=== PATIENT | male | born 1980 | race Caucasian/White ===

== ENCOUNTER 2020-07-16 17:14 | Emergency (ER) | payer MEDICAID, OTHER ==
--- NOTE | 2020-07-16 17:37 | ERPHSYRPT ---
- History of Present Illness Time Seen by Provider: 07/16/20 17:37 Source: patient Exam Limitations: no limitations Physician History: This is a 39-year-old white male who presents with left eye pain, redness and watering. 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 He could see the foreign body. Over the last 4 days the above symptoms were worsening. Timing/Duration: day(s) (4) Location: left eye Severity: moderate Apparent Injury: yes Associated Symptoms: pain, burning, sensitivity to light, redness, foreign body sensation Allergies/Adverse Reactions: penicillin G Allergy (Verified 07/16/20 18:16) Hives Home Medications: Omeprazole [Prilosec] 20 mg PO BID 07/15/16 [History] Hx Tetanus, Diphtheria Vaccination/Date Given: Yes Hx Influenza Vaccination/Date Given: No Hx Pneumococcal Vaccination/Date Given: No Travel Risk - International Travel Have you traveled outside of the country in past 3 weeks: No - Coronavirus Screening Are you exhibiting any of the following symptoms?: No Close contact with a COVID-19 positive Pt in past 14-21 Days: No - Review of Systems Constitutional: No Symptoms Eyes: Eye Pain (Left left), Eye Redness, Foreign Body Sensation (Left) Ears, Nose, & Throat: No Symptoms Respiratory: No Symptoms Cardiac: No Symptoms Abdominal/Gastrointestinal: No Symptoms Genitourinary Symptoms: No Symptoms Musculoskeletal: No Symptoms Skin: No Symptoms Neurological: No Symptoms Psychological: No Symptoms Endocrine: No Symptoms Hematologic/Lymphatic: No Symptoms Immunological/Allergic: No Symptoms All Other Systems: Reviewed and Negative - Past Medical History Pertinent Past Medical History: Yes Neurological History: Seizures ENT History: No Pertinent History Cardiac History: No Pertinent History Respiratory History: Asthma Endocrine Medical History: No Pertinent History Musculoskeletal History: Fractures GI Medical History: GERD History: No Pertinent History Psycho-Social History: Anxiety, Depression Male Reproductive Disorders: No Pertinent History - Past Surgical History Past Surgical History: Yes Neuro Surgical History: No Pertinent History Cardiac: No Pertinent History Respiratory: No Pertinent History Gastrointestinal: No Pertinent History Genitourinary: No Pertinent History Musculoskeletal: Orthopedic Surgery Male Surgical History: No Pertinent History Other Surgical History: rt hand - Social History Smoking Status: Current every day smoker How long have you smoked: YRS Exposure to second hand smoke: Yes Drug Use: none Patient Lives Alone: No - Nursing Vital Signs Nursing Vital Signs: Initial Vital Signs Temperature 97.4 F 07/16/20 18:09 Pulse Rate 88 07/16/20 18:09 Respiratory Rate 15 07/16/20 18:09 Blood Pressure 135/75 07/16/20 18:09 O2 Sat by Pulse Oximetry 98 07/16/20 18:09 - Physical Exam General Appearance: mild distress, alert, anxiety Eye Exam: right eye: normal inspection, left eye: PERRL, EOMI, conjunctival inflammation, corneal abrasion, foreign body (At the 6 to 7 o'clock position) Ears, Nose, Throat Exam: normal ENT inspection, moist mucous membranes Neck Exam: normal inspection, non-tender, supple, full range of motion Respiratory Exam: airway intact, No chest tenderness, No respiratory distress Gastrointestinal Exam: tenderness Extremity Exam: normal inspection, normal range of motion, pelvis stable Neurologic: alert, oriented x 3, cooperative, cosmetology professor II-XII nml as tested, normal mood/affect, nml cerebellar function, nml station & gait, sensation nml Skin Exam: normal color, warm, dry Lymphatic: No adenopathy SpO2 Interpretation: normal O2 Delivery: Room Air - Course Nursing assessment & vital signs reviewed: Yes Ordered Tests: Medication Summary Discontinued Medications Generic Name Dose Route Start Last Admin Trade Name Freq PRN Reason Stop Dose Admin Erythromycin 3.5 gm 07/16/20 18:48 Erythromycin 3.5 Gm Ophth. OP 07/16/20 18:49 STAT ONE Tetracaine HCl Confirm 07/16/20 18:37 Tetracaine 0.5% Steri-Unit [place] Administered 07/16/20 18:38 Dose 4 ml OP .STK-MED ONE Tetracaine HCl 4 ml 07/16/20 18:47 Tetracaine 0.5% Steri-Unit [place] OP 07/16/20 18:48 STAT STA - Progress Progress: unchanged Counseled pt/family regarding: diagnosis, need for follow-up - Departure Departure Disposition: Home Clinical Impression: Corneal abrasion, left, Foreign body of left cornea Condition: Stable Critical Care Time: No Referrals: ASTER MARIA [Primary Care Provider] - Additional Instructions: Place erythromycin ophthalmologic ointment 4 times a day for the next 5 days. Follow-up with an direct support staff member if symptoms worsening or after 48 hours your symptoms have not improved. Take medication as prescribed. Prescriptions: Hydrocodone/APAP 5/325 [[place] 5/325 mg] 1 each PO Q8H PRN PRN #10 tablet MDD 3 PRN Reason: Pain Erythromycin Base 3.5 gm [Erythromycin 3.5 GM OPHTH.] 3.5 gm OP QID #1 be
[2020-07-16] MEDS ORDERED: TETRACAINE 0.5% STERI-UNIT SOL OP ONE (18:37)
[2020-07-16] MEDS ORDERED: TETRACAINE 0.5% STERI-UNIT SOL OP STA (18:47)
[2020-07-16] MEDS ORDERED: Erythromycin 3.5 GM OPHTH. OP ONE (18:48)
[2020-07-16] MEDS ORDERED: Erythromycin 1 GM ONE (18:53)
[2020-07-16 19:12] VITALS: BP 137/92; PULSE 84; O2SAT 99
== END 2020-07-16 19:12 | disposition home or self-care (01) ==
LOC: ED 17:14
DX: T15.02XA Foreign body in cornea, left eye, initial encounter (principal); S00.252A Superficial foreign body of left eyelid and periocular area, initial encounter; W45.8XXA Other foreign body or object entering through skin, initial encounter; Y93.89 Activity, other specified; Y92.89 Other specified places as the place of occurrence of the external cause; H57.12 Ocular pain, left eye
CPT/HCPCS: 99283; A9270-GY

== ENCOUNTER 2021-02-22 19:02 | Emergency (ER) | payer MEDICAID ==
--- NOTE | 2021-02-22 19:18 | ERPHSYRPT ---
- History of Present Illness Time Seen by Provider: 02/22/21 19:17 Source: patient Physician History: This is a 40-year-old white male with chronic, generalized poor dentition who presents with 2 to 3 days history of dental pain as well as pain to the right lateral aspect of his tongue. Patient was put on clindamycin, naproxen and nystatin liquid swish and swallow. Patient is also added Orajel for the pain. Patient states that he has not taken all his antibiotics as prescribed and the pain is improved but the above treatment plus the addition of Tylenol plain has not lowered the pain to an appropriate level for him. He has not had fevers. He has an appointment with 3 different dentists all scheduled within the next 1 to 2 weeks. He does not feel as though he can wait that long for sufficient pain control. Timing/Duration: gradual onset Prearrival Treatment: over the counter meds, prescription meds Modifying Factors: Improves With: nothing Associated Symptoms: tooth pain Allergies/Adverse Reactions: penicillin G Allergy (Verified 02/22/21 19:21) Hives Home Medications: Omeprazole [Prilosec] 40 mg PO DAILY 07/15/16 [History] Naproxen 500 mg [Naprosyn 500 MG] 500 mg PO BID 02/22/21 [History] Nystatin 60 ml [Nystatin SUSPENSION 60 ML] 5 ml PO QID 02/22/21 [History] clindamycin HCL [Cleocin HCl] 300 mg PO QID 02/22/21 [History] Hx Tetanus, Diphtheria Vaccination/Date Given: Yes Hx Influenza Vaccination/Date Given: No Hx Pneumococcal Vaccination/Date Given: No Travel Risk - International Travel Have you traveled outside of the country in past 3 weeks: No - Coronavirus Screening Are you exhibiting any of the following symptoms?: No Close contact with a COVID-19 positive Pt in past 14-21 Days: No - Vaccine Status Have you recieved a Covid-19 vaccination: No - Review of Systems Constitutional: No Symptoms Eyes: No Symptoms Ears, Nose, & Throat: Other (Dental pain) Respiratory: No Symptoms Cardiac: No Symptoms Abdominal/Gastrointestinal: No Symptoms Genitourinary Symptoms: No Symptoms Musculoskeletal: No Symptoms Skin: No Symptoms Neurological: No Symptoms Psychological: No Symptoms Endocrine: No Symptoms Hematologic/Lymphatic: No Symptoms Immunological/Allergic: No Symptoms All Other Systems: Reviewed and Negative - Past Medical History Pertinent Past Medical History: Yes Neurological History: Seizures ENT History: No Pertinent History Cardiac History: No Pertinent History Respiratory History: Asthma Endocrine Medical History: No Pertinent History Musculoskeletal History: Fractures GI Medical History: GERD History: No Pertinent History Psycho-Social History: Anxiety, Depression Male Reproductive Disorders: No Pertinent History - Past Surgical History Past Surgical History: Yes Neuro Surgical History: No Pertinent History Cardiac: No Pertinent History Respiratory: No Pertinent History Gastrointestinal: No Pertinent History Genitourinary: No Pertinent History Musculoskeletal: Orthopedic Surgery Male Surgical History: No Pertinent History Other Surgical History: rt hand - Social History Smoking Status: Current every day smoker How long have you smoked: YRS Exposure to second hand smoke: Yes Drug Use: none Patient Lives Alone: No - Nursing Vital Signs Nursing Vital Signs: Initial Vital Signs Temperature 98.0 F 02/22/21 19:09 Pulse Rate 109 H 02/22/21 19:09 Respiratory Rate 16 02/22/21 19:09 Blood Pressure 137/100 02/22/21 19:09 O2 Sat by Pulse Oximetry 97 02/22/21 19:09 Pain Scale Pain Intensity 10 - Physical Exam General Appearance: no apparent distress, alert, anxiety Eye Exam: bilateral eye: normal inspection, PERRL, EOMI Ear Exam: bilateral ear: auricle normal Nasal Exam: normal inspection Throat Exam: dental tenderness (Generalized poor dentition with multiple fractured teeth. No evidence of any abscesses) Neck Exam: normal inspection, non-tender, supple, full range of motion, trachea midline Cardiovascular/Respiratory Exam: chest non-tender, no respiratory distress Abdominal Exam: non-tender Neurologic Exam: alert, oriented x 3, cooperative, home health outreach coordinator II-XII nml as tested, normal mood/affect, nml cerebellar function, nml station & gait, sensation nml Skin Exam: normal color, warm, dry SpO2 Interpretation: normal O2 Delivery: Room Air - Course Nursing assessment & vital signs reviewed: Yes - Progress Progress: unchanged Counseled pt/family regarding: diagnosis, need for follow-up - Departure Departure Disposition: Home Clinical Impression: Pain, dental Condition: Stable Critical Care Time: No Referrals: ASTER MARIA [Primary Care Provider] - Additional Instructions: Continue your nystatin, naproxen, clindamycin and Orajel. Take the new prescription as prescribed. Follow-up with your dentist for further and def initive management Prescriptions: Hydrocodone/APAP 5/325 [[place] 5/325 mg] 1 each PO Q8H PRN PRN #7 tablet MDD 3 PRN Reason: Pain
[2021-02-22 19:25] VITALS: O2SAT 97
[2021-02-22 19:45] VITALS: BP 129/92; PULSE 104
== END 2021-02-22 19:45 | disposition home or self-care (01) ==
LOC: ED 19:02
DX: K08.89 Other specified disorders of teeth and supporting structures (principal)
CPT/HCPCS: 99283

== ENCOUNTER 2021-04-16 23:55 | Emergency (ER) | payer OTHER ==
[2021-04-17] MEDS ORDERED: MORPHINE SULFATE 4 MG INJ IV ONE (00:12)
[2021-04-17] MEDS ORDERED: Zofran 4 MG/2 ML VIAL IV ONE (00:12)
[2021-04-17] MEDS ORDERED: TYLENOL 325 MG PO ONE (00:12)
[2021-04-17] MEDS ORDERED: Sodium Chloride 0.9% 1000 ML 1,000 ML IV STA (00:12)
[2021-04-17] MEDS ORDERED: DUONEB 0.5-3 MG/3 ml Neb IH ONE ×2 (00:13→00:18)
[2021-04-17] MEDS ORDERED: solu-MEDROL 125 MG IV ONE (00:13)
[2021-04-17] MEDS ORDERED: AZACTAM 1 GM*** 2 GM in Sodium Chloride 0.9% 100 ML BAG 100 ML IV ONE (00:15)
[2021-04-17] MEDS ORDERED: LEVOFLOXACIN 750MG/150ML D5W 750 MG/150 ML BAG IV STA (00:15)
--- NOTE | 2021-04-17 00:34 | ERPHSYRPT ---
- History of Present Illness Time Seen by Provider: 04/16/21 23:59 Source: patient Exam Limitations: no limitations Patient Subjective Stated Complaint: pt states he was ripping moldy insulation and bhakti out of a house trailer today and has been having some chest pain and shortness of breath. Triage Nursing Assessment: pt alert and oriented, answers questions approp. pt ambulatory with steady gait noted. frequent cough noted. lungs cta. face flushed, skin hot and dry. Physician History: 40 years old male presented in the ER with off-and-on cough since receiving second chart of Covid vaccine a couple of months ago and rapid worsening since afternoon after he ripped off mold insulated carpet. Patient reports chest tightness pressure and heaviness with productive cough of clear to yellow sputum with increasing shortness of breath with activity. Gait evening he started to have a fever with a T-max of 103. He is also complaining of epigastric/right upper quadrant abdominal pain with 2 episodes of nonprojectile, nonbilious vomiting emesis. Denies any sick. Patient reports having similar symptoms in the past after exposure to mold. Timing/Duration: today, constant, gradual onset, worse Severity of Dyspnea-Max: moderate Severity of Dyspnea-Current: moderate Possible Cause: allergen exposure Modifying Factors: Worsens With: activity, coughing, deep breath, exertion Associated Symptoms: anxiety, cough, chest pain/discomfort, wheezing, heaviness, muscle spasms hands, painful breathing, sweating, tightness Allergies/Adverse Reactions: penicillin G Allergy (Verified 04/17/21 00:11) Hives Home Medications: Omeprazole [Prilosec] 40 mg PO DAILY 07/15/16 [History] Hx Tetanus, Diphtheria Vaccination/Date Given: Yes Hx Influenza Vaccination/Date Given: No Hx Pneumococcal Vaccination/Date Given: No Immunizations Up to Date: Yes Travel Risk - International Travel Have you traveled outside of the country in past 3 weeks: No - Coronavirus Screening Are you exhibiting any of the following symptoms?: Yes Symptoms: Cough: New Onset Close contact with a COVID-19 positive Pt in past 14-21 Days: No - Vaccine Status Have you recieved a Covid-19 vaccination: Yes [employer]: Moderna - Vaccination Dates Date of 2cond Vaccination (if applicable): 2020 - Review of Systems Constitutional: Fever, Chills, Fatigue Eyes: No Symptoms Ears, Nose, & Throat: Throat Pain Respiratory: Cough, Dyspnea, Dyspnea on Exertion (CASTELLANOS), Wheezing Cardiac: Chest Pain Abdominal/Gastrointestinal: Abdominal Pain, Nausea, Vomiting Genitourinary Symptoms: No Symptoms Skin: No Symptoms Neurological: Headache Psychological: No Symptoms Endocrine: No Symptoms Hematologic/Lymphatic: No Symptoms Immunological/Allergic: No Symptoms - Past Medical History Pertinent Past Medical History: Yes Neurological History: Seizures ENT History: No Pertinent History Cardiac History: No Pertinent History Respiratory History: Asthma Endocrine Medical History: No Pertinent History Musculoskeletal History: Fractures GI Medical History: GERD History: No Pertinent History Psycho-Social History: Anxiety, Depression Male Reproductive Disorders: No Pertinent History - Past Surgical History Past Surgical History: Yes Neuro Surgical History: No Pertinent History Cardiac: No Pertinent History Respiratory: No Pertinent History Gastrointestinal: No Pertinent History Genitourinary: No Pertinent History Musculoskeletal: Orthopedic Surgery Male Surgical History: No Pertinent History Other Surgical History: rt hand - Social History Smoking Status: Current every day smoker How long have you smoked: off/on Exposure to second hand smoke: Yes Drug Use: none Patient Lives Alone: No - Nursing Vital Signs Nursing Vital Signs: Initial Vital Signs Temperature 103.3 F 04/16/21 23:57 Pulse Rate 118 H 04/16/21 23:57 Respiratory Rate 20 04/16/21 23:57 Blood Pressure 130/83 04/16/21 23:57 O2 Sat by Pulse Oximetry 99 04/16/21 23:57 Pain Scale Pain Intensity 4 - Physical Exam General Appearance: no apparent distress, alert, anxiety Eye Exam: PERRL/EOMI, eyes nml inspection Ears, Nose, Throat Exam: hearing grossly normal, pharyngeal erythema Neck Exam: normal inspection, non-tender, supple, full range of motion, No Brudz inski, No Kernig's, No meningismus Respiratory Exam: wheezing, No chest tenderness Cardiovascular/Chest Exam: normal heart sounds, tachycardia Abdominal/Gastrointestinal Exam: soft, normal bowel sounds, tenderness (Epigastric/right upper quadrant) Extremity Exam: non-tender, normal range of motion, normal inspection Neurologic Exam: alert, oriented x 3, cooperative, denture contour wire specialist II-XII nml as tested, normal mood/affect, nml cerebellar function, nml station & gait, sensation nml, No motor deficits Skin Exam: normal color SpO2 Interpretation: normal SpO2: 97 O2 Delivery: Room Air - Course EKG Interpreted by Me: RATE ([id number]), Sinus Tach, NORMAL AXIS, NORMAL INTERVALS, NORMAL QRS Ordered Tests: Medication Summary Discontinued Medications Generic Name Dose Route Start Last Admin Trade Name Hermes PRN Reason Stop Dose Admin Acetaminophen 975 mg 04/17/21 00:12 04/17/21 02:14 Tylenol 325 Mg PO 04/17/21 00:13 975 mg STAT ONE Administration Acetaminophen Confirm 04/17/21 01:49 Tylenol 325 Mg Administered 04/17/21 01:50 Dose 975 mg .ROUTE .STK-MED ONE Albuterol/Ipratropium 3 ml 04/17/21 00:13 04/17/21 00:20 Duoneb 0.5-3 Mg/3 Ml Neb IH 04/17/21 00:14 3 ml STAT ONE Administration Albuterol/Ipratropium Confirm 04/17/21 00:18 Duoneb 0.5-3 Mg/3 Ml Neb Administered 04/17/21 00:19 Dose 3 ml IH .STK-MED ONE Sodium Chloride 1,000 mls @ 999 mls/hr 04/17/21 00:12 04/17/21 03:10 Sodium Chloride 0.9% 1000 Ml IV 04/17/21 01:12 Infused .Q1H1M STA Infusion Levofloxacin/Dextrose 750 mg in 150 mls @ 100 mls/hr 04/17/21 00:15 04/17/21 03:32 Levofloxacin 750mg/150ml D5w IV 04/17/21 01:44 Infused STAT STA Infusion Aztreonam 2 gm/ Sodium 100 mls @ 200 mls/hr 04/17/21 00:15 04/17/21 03:24 Chloride IV 04/17/21 00:44 200 mls/hr STAT ONE Administration Sodium Chloride Confirm 04/17/21 01:49 Sodium Chloride 0.9% 1000 Ml Administered 04/17/21 01:50 Dose 1,000 mls @ ud .ROUTE .STK-MED ONE Levofloxacin/Dextrose Confirm 04/17/21 01:49 Levofloxacin 750mg/150ml D5w Administered 04/17/21 01:50 Dose 750 mg in 150 mls @ ud IV .STK-MED ONE Methylprednisolone Sodium Succinate 125 mg 04/17/21 00:13 04/17/21 01:58 Solu-Medrol 125 Mg IV 04/17/21 00:14 125 mg STAT ONE Administration Methylprednisolone Sodium Succinate Confirm 04/17/21 01:49 Solu-Medrol 125 Mg Administered 04/17/21 01:50 Dose 125 mg .ROUTE .STK-MED ONE Morphine Sulfate 4 mg 04/17/21 00:12 04/17/21 01:54 Morphine Sulfate 4 Mg Inj IV 04/17/21 00:13 4 mg STAT ONE Administration Morphine Sulfate Confirm 04/17/21 01:49 Morphine Sulfate 4 Mg Inj Administered 04/17/21 01:50 Dose 4 mg .ROUTE .STK-MED ONE Ondansetron HCl 4 mg 04/17/21 00:12 04/17/21 01:59 Zofran 4 Mg/2 Ml Vial IV 04/17/21 00:13 4 mg STAT ONE Administration Ondansetron HCl Confirm 04/17/21 01:49 Zofran 4 Mg/2 Ml Vial Administered 04/17/21 01:50 Dose 4 mg .ROUTE .STK-MED ONE Lab/Rad Data: Laboratory Result Diagrams 04/17/21 01:13 04/17/21 01:13 Laboratory Results 04/17/21 04/17/21 04/17/21 Range/Units 02:13 01:13 01:13 WBC (4.0-10.5) K/mm3 RBC (4.1-5.6) M/mm3 Hgb (12.5-18.0) gm/dl Hct (42-50) % MCV (78-100) fl MCH (26-32) pg MCHC (32-36) g/dl RDW (11.5-14.0) % Plt Count (150-450) K/mm3 MPV (7.5-11.0) fl Gran % (36.0-66.0) % Eos # (Auto) (0-0.5) Absolute Lymphs (auto) (1.0-4.6) Absolute Monos (auto) (0.0-1.3) Lymphocytes % (24.0-44.0) % Monocytes % (0.0-12.0) % Eosinophils % (0.00-5.0) % Basophils % (0.0-0.4) % Absolute Granulocytes (1.4-6.9) Basophils # (0-0.4) Sodium (137-145) mmol/L Potassium (3.5-5.1) mmol/L Chloride (98-107) mmol/L Carbon Dioxide (22-30) mmol/L Anion Gap (5-15) MEQ/L BUN (9-20) mg/dL Creatinine (0.66-1.25) mg/dL Estimated GFR ML/MIN Glucose (74-106) mg/dL Lactic Acid (0.4-2.0) Calcium (8.4-10.2) mg/dL Total Bilirubin (0.2-1.3) mg/dL AST (17-59) U/L ALT (0-50) U/L Alkaline Phosphatase (38-126) U/L Troponin I < 0.012 (0.000-0.034) ng/mL NT-Pro-B Natriuret Pep 60.2 (0-450) pg/mL Serum Total Protein (6.3-8.2) g/dL Albumin (3.5-5.0) g/dL Amylase (30-110) U/L Lipase (23-300) U/L Urine Color STRAW (YELLOW) Urine Appearance CLEAR (CLEAR) Urine pH 6.0 (5-6) Ur Specific Hopkins 1.016 (1.005-1.025) Urine Protein NEGATIVE (Negative) Urine Ketones NEGATIVE (NEGATIVE) Urine Blood NEGATIVE (0-5) Francesco/ul Urine Nitrite NEGATIVE (NEGATIVE) Urine Bilirubin NEGATIVE (NEGATIVE) Urine Urobilinogen NEGATIVE (0-1) mg/dL Ur Leukocyte Esterase NEGATIVE (NEGATIVE) Urine WBC (Auto) NONE SEEN (0-5) /HPF Urine RBC (Auto) NONE (0-2) /HPF U Epithel Cells (Auto) NONE (FEW) /HPF Urine Bacteria (Auto) NONE SEEN (NEGATIVE) /HPF Urine Culture Reflexed NO (NO) Urine Glucose NEGATIVE (NEGATIVE) mg/dL Influenza Type A Ag NEGATIVE (NEGATIVE) Influenza Type B Ag NEGATIVE (NEGATIVE) 04/17/21 04/17/21 04/17/21 Range/Units 01:13 01:13 00:12 WBC 13.4 H (4.0-10.5) K/mm3 RBC 4.59 (4.1-5.6) M/mm3 Hgb 14.6 (12.5-18.0) gm/dl Hct 44.2 (42-50) % MCV 96.3 (78-100) fl MCH 31.8 (26-32) pg MCHC 33.0 (32-36) g/dl RDW 13.4 (11.5-14.0) % Plt Count 290 (150-450) K/mm3 MPV 9.9 (7.5-11.0) fl Gran % 80.2 H (36.0-66.0) % Eos # (Auto) 0.01 (0-0.5) Absolute Lymphs (auto) 1.75 (1.0-4.6) Absolute Monos (auto) 0.89 (0.0-1.3) Lymphocytes % 13.0 L (24.0-44.0) % Monocytes % 6.6 (0.0-12.0) % Eosinophils % 0.1 (0.00-5.0) % Basophils % 0.1 (0.0-0.4) % Absolute Granulocytes 10.77 H (1.4-6.9) Basophils # 0.02 (0-0.4) Sodium 136 L (137-145) mmol/L Potassium 3.6 (3.5-5.1) mmol/L Chloride 101 (98-107) mmol/L Carbon Dioxide 26 (22-30) mmol/L Anion Gap 12.0 (5-15) MEQ/L BUN 11 (9-20) mg/dL Creatinine 1.04 (0.66-1.25) mg/dL Estimated GFR > 60.0 ML/MIN Glucose 95 (74-106) mg/dL Lactic Acid 2.1 H (0.4-2.0) Calcium 9.3 (8.4-10.2) mg/dL Total Bilirubin 0.80 (0.2-1.3) mg/dL AST 32 (17-59) U/L ALT 36 (0-50) U/L Alkaline Phosphatase 106 (38-126) U/L Troponin I (0.000-0.034) ng/mL NT-Pro-B Natriuret Pep (0-450) pg/mL Serum Total Protein 7.3 (6.3-8.2) g/dL Albumin 4.3 (3.5-5.0) g/dL Amylase 48 (30-110) U/L Lipase 83 (23-300) U/L Urine Color (YELLOW) Urine Appearance (CLEAR) Urine pH (5-6) Ur Specific Hopkins (1.005-1.025) Urine Protein (Negative) Urine Ketones (NEGATIVE) Urine Blood (0-5) Francesco/ul Urine Nitrite (NEGATIVE) Urine Bilirubin (NEGATIVE) Urine Urobilinogen (0-1) mg/dL Ur Leukocyte Esterase (NEGATIVE) Urine WBC (Auto) (0-5) /HPF Urine RBC (Auto) (0-2) /HPF U Epithel Cells (Auto) (FEW) /HPF Urine Bacteria (Auto) (NEGATIVE) /HPF Urine Culture Reflexed (NO) Urine Glucose (NEGATIVE) mg/dL Influenza Type A Ag (NEGATIVE) Influenza Type B Ag (NEGATIVE) - Progress Progress: improved Air Movement: good Progress Note: 04/17/21 02:30 Patient was tachypneic and tachycardic on presentation with wheezing, given breathing treatment, Solu-Medrol along with Tylenol for fever control. Is given a dose of antibiotics as well. Work-up showed white count of 13, mildly elevated lactate 2.1, grossly unremarkable chemistries otherwise. CT chest/abdomen pelvis negative for any acute findings. Patient is recommended observation admission but he does not want to stay, states "I am feeling better after breathing treatment and do not want to stay in the hospital". He is counseled about worsening of condition but he is adamant about going home. On repeated evaluation his lung sounds much clear. Afebrile. We will continue with Levaquin, steroid and inhaler and outpatient follow-up recommended. Discussed signs symptoms of worsening needing return to ER which he seems understanding. Blood Culture(s) Obtained: Yes Antibiotics given: Yes Counseled pt/family regarding: lab results, diagnosis, need for follow-up, rad results - Departure Departure Disposition: Home Clinical Impression: Acute bronchitis Qualifiers: Bronchitis organism: unspecified organism Qualified Code(s): J20.9 - Acute bronchitis, unspecified Fever Qualifiers: Fever type: unspecified Qualified Code(s): R50.9 - Fever, unspecified Condition: Stable Critical Care Time: No Referrals: ASTER MARIA [Primary Care Provider] - (1-2 days for reevaluation.) Instructions: Asthma, Adult (DC), Acute Bronchitis Additional Instructions: Take Tylenol/ibuprofen alternate for fever control greater than 100.4 every 4-6 hourly. Drink plenty of fluids. Avoid exposure to allergens. Continue with antibiotics and steroids. Use inhaler as needed for cough/shortness of breath. Return to ER for worsening cough shortness of breath/fever chills etc. Prescriptions: Prednisone 20 mg [Deltasone 20 mg] 60 mg PO DAILY 5 Days #15 tablet Levofloxacin [Levaquin 500 MG Tablet] 500 mg PO DAILY #7 tablet Albuterol 8 gm Mdi Hfa [Ventolin Hfa MDI] 8 gm IH Q4H #1 [email or web address]
[2021-04-17 01:20] LABS: Absolute Neutrophil Ct (ANC) 10.77 (1.4-6.9); BASOPHIL % 0.1 % (0.0-0.4); Basophil (Absolute #) 0.02 (0-0.4); Eosinophil % 0.1 % (0.00-5.0); Eosinophil (Absolute #) 0.01 (0-0.5); Hematocrit 44.2 % (42-50); Hemoglobin 14.6 gm/dl (12.5-18.0); Lymphocyte (Absolute #) 1.75 (1.0-4.6); Mean Cell Volume 96.3 fl (78-100); Mean Corpuscular Hemoglobin 31.8 pg (26-32); Mean Platelet Volume 9.9 fl (7.5-11.0); Monocyte (Absolute #) 0.89 (0.0-1.3); Monocytes % 6.6 % (0.0-12.0); Neutrophil % 80.2 % (36.0-66.0); Platelet Count 290 K/mm3 (150-450); Red Blood Count 4.59 M/mm3 (4.1-5.6); Red Cell Distribution Width 13.4 % (11.5-14.0); White Blood Count 13.4 K/mm3 (4.0-10.5)
[2021-04-17 01:33] LABS: ALBUMIN 4.3 g/dL (3.5-5.0); ALKALINE PHOSPHATASE 106 U/L (38-126); AMYLASE 48 U/L (30-110); BLOOD UREA NITROGEN 11 mg/dL (9-20); CHLORIDE 101 mmol/L (98-107); Calcium 9.3 mg/dL (8.4-10.2); Carbon Dioxide 26 mmol/L (22-30); Creatinine 1 1.04 mg/dL (0.66-1.25); EST GLOMERULAR FILTRATION RATE > 60.0 ML/MIN; Glucose 95 mg/dL (74-106); LIPASE 83 U/L (23-300); Potassium 3.6 mmol/L (3.5-5.1); SGOT/AST 32 U/L (17-59); SGPT/ALT 36 U/L (0-50); SODIUM 136 mmol/L (137-145); Total Protein 7.3 g/dL (6.3-8.2)
[2021-04-17 01:41] LABS: INFLUENZA A NEGATIVE (NEGATIVE); INFLUENZA B NEGATIVE (NEGATIVE)
[2021-04-17 01:44] LABS: NT PRO BNP 60.2 pg/mL (0-450); TROPONIN < 0.012 ng/mL (0.000-0.034)
[2021-04-17] MEDS ORDERED: solu-MEDROL 125 MG ONE (01:49)
[2021-04-17] MEDS ORDERED: Sodium Chloride 0.9% 1000 ML 1,000 ML ONE (01:49)
[2021-04-17] MEDS ORDERED: LEVOFLOXACIN 750MG/150ML D5W 750 MG/150 ML BAG IV ONE (01:49)
[2021-04-17] MEDS ORDERED: Zofran 4 MG/2 ML VIAL ONE (01:49)
[2021-04-17] MEDS ORDERED: TYLENOL 325 MG ONE (01:49)
[2021-04-17] MEDS ORDERED: MORPHINE SULFATE 4 MG INJ ONE (01:49)
[2021-04-17 02:23] LABS: Appearance CLEAR (CLEAR); Bilirubin NEGATIVE (NEGATIVE); Blood NEGATIVE Ery/ul (0-5); Glucose NEGATIVE (NEGATIVE); Ketones NEGATIVE (NEGATIVE); Leukocyte Esterase NEGATIVE (NEGATIVE); Nitrite NEGATIVE (NEGATIVE); Protein,Urine Dip NEGATIVE (Negative); Specific Gravity 1.016 (1.005-1.025); Urobilinogen NEGATIVE mg/dL (0-1)
[2021-04-17 02:49] LABS: Bacteria NONE SEEN /HPF (NEGATIVE); WBC NONE SEEN /HPF (0-5)
[2021-04-17 03:36] VITALS: BP 102/63; PULSE 97
--- NOTE | 2021-04-17 09:03 | XRAY ---
Indication: Fever, cough, nausea, vomiting, and chest pressure. History PE. Multiple contiguous axial images obtained through the chest using 100 cc Isovue 370 contrast and PE protocol. Comparison: July 15, 2016. There is adequate opacification of the pulmonary arteries to include the lobar and segmental branches. However minimal respiration artifact limits evaluation of the more distal branches. No obvious pulmonary embolus. Heart not enlarged. Aorta is normal in course and caliber. No pathologic mediastinal/hilar lymphadenopathy. Lungs demonstrate stable right lower lobe calcified granuloma. No new pulmonary mass, infiltrate, or effusion. Bony thorax intact. CT abdomen/pelvis reported separately. Impression: Continued negative pulmonary embolus with again incidental right lower lobe calcified granuloma. No new/acute abnormalities. Comment: Preliminary interpretation was made by [facility]. No critical discrepancy.
--- NOTE | 2021-04-17 09:05 | XRAY ---
Indication: Fever, cough, nausea, vomiting, and chest pressure. Multiple contiguous axial images obtained through the abdomen and pelvis using 100 cc Isovue 370 contrast. Comparison: None. CT chest reported separately. Noncontrasted stomach and bowel loops nonobstructed. Normal air-filled appendix. No free fluid/air. Remaining liver, gallbladder, pancreas, spleen, adrenal glands, kidneys, ureters, and bladder are unremarkable. Minimal aortic calcifications. No AAA or pathologic retroperitoneal lymphadenopathy. Osseous structures intact. No ventral or inguinal hernias. Impression: CT abdomen/pelvis with contrast exam is negative. Comment: Preliminary interpretation was made by [facility]. No critical discrepancy.
[2021-04-18 18:29] VITALS: O2SAT 97
== END 2021-04-17 04:05 | disposition home or self-care (01) ==
LOC: ED 23:55
DX: J20.9 Acute bronchitis, unspecified (principal)
CPT/HCPCS: 36000; 36415; 71260; 74177; 80053; 81001; 82150; 83605; 83690; 83880; 84484; 85025; 87040; 87400; 93005; 94640; 96360; 96365; 96367; 96374; 96375; 99285; J1956; J2270; J2405; J2930; A9270-GY

== ENCOUNTER 2022-04-08 22:17 | Emergency (ER) | payer OTHER ==
--- NOTE | 2022-04-08 22:37 | ERPHSYRPT ---
- History of Present Illness Time Seen by Provider: 04/08/22 22:30 Source: patient Physician History: Patient is a 41-year-old male presents to our ED with pain to his right wrist. Patient states he was mowing the lawn when something shot out a lawnmower and hit him on the wrist. Pain described as an ache that is localized. No radiation. Pain worse with movement and palpation. Pain improved with rest. No other injuries reported. Patient denies history of the same. Patient voices no other complaints concerns at this time. 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 - Vaccination Dates Date of 2cond Vaccination (if applicable): 2020 - Review of Systems Constitutional: No Symptoms, No Fever, No Chills Eyes: No Symptoms Ears, Nose, & Throat: No Symptoms Respiratory: No Symptoms, No Cough, No Dyspnea Cardiac: No Symptoms, No Chest Pain, No Edema, No Syncope Abdominal/Gastrointestinal: No Symptoms, No Abdominal Pain, No Nausea, No Vomiting, No Diarrhea Genitourinary Symptoms: No Symptoms, No Dysuria Musculoskeletal: No Symptoms, No Back Pain, No Neck Pain Skin: No Symptoms, No Rash Neurological: No Symptoms, No Dizziness, No Focal Weakness, No Sensory Changes Psychological: No Symptoms Endocrine: No Symptoms Hematologic/Lymphatic: No Symptoms Immunological/Allergic: No Symptoms All Other Systems: Reviewed and Negative - Past Medical History Pertinent Past Medical History: Yes Neurological History: Seizures ENT History: No Pertinent History Cardiac History: No Pertinent History Respiratory History: Asthma Endocrine Medical History: No Pertinent History Musculoskeletal History: Fractures GI Medical History: GERD History: No Pertinent History Psycho-Social History: Anxiety, Depression Male Reproductive Disorders: No Pertinent History - Past Surgical History Past Surgical History: Yes Neuro Surgical History: No Pertinent History Cardiac: No Pertinent History Respiratory: No Pertinent History Gastrointestinal: No Pertinent History Genitourinary: No Pertinent History Musculoskeletal: Orthopedic Surgery Male Surgical History: No Pertinent History Other Surgical History: rt hand - Social History Smoking Status: Current every day smoker How long have you smoked: off/on Exposure to second hand smoke: Yes Drug Use: none Patient Lives Alone: No - Nursing Vital Signs Nursing Vital Signs: Initial Vital Signs Temperature 99.3 F 04/08/22 22:25 Pulse Rate 84 04/08/22 22:25 Respiratory Rate 17 04/08/22 22:25 Blood Pressure 123/78 04/08/22 22:25 O2 Sat by Pulse Oximetry 98 04/08/22 22:25 Pain Scale Pain Intensity 9 - Physical Exam General Appearance: no apparent distress, alert Eye Exam: PERRL/EOMI, eyes nml inspection Ears, Nose, Throat Exam: normal ENT inspection, TMs normal, pharynx normal, moist mucous membranes Neck Exam: normal inspection, non-tender, supple, full range of motion Respiratory Exam: normal breath sounds, lungs clear, airway intact, No respiratory distress Cardiovascular Exam: regular rate/rhythm, normal heart sounds, normal peripheral pulses Gastrointestinal/Abdomen Exam: soft, normal bowel sounds, No tenderness, No mass Back Exam: normal inspection, normal range of motion, No CVA tenderness, No vertebral tenderness Extremity Exam: normal inspection, normal range of motion, pelvis stable, other (Tenderness to palpation right wrist. Mild swelling. Overlying soft tissue intact. No open or draining lesions. No lacerations.) Neurologic Exam: alert, oriented x 3, cooperative, normal mood/affect, nml cerebellar function, nml station & gait, sensation nml, No motor deficits Skin Exam: normal color, warm, dry, No rash Lymphatic Exam: No adenopathy SpO2 Interpretation: normal SpO2: 98 O2 Delivery: Room Air - Course Nursing assessment & vital signs reviewed: Yes - Radiology Exams Wrist X-ray Interpretation: Interpreted by me (No fracture dislocations. No soft tissue abnormalities) Forearm X-ray Interpretation: Interpreted by me (No fracture dislocations. No soft tissue abnormalities) Ordered Tests: Active Orders 24 hr Category Date Time Status FOREARM Stat Exams 04/08/22 23:49 Taken WRIST (MIN 3 VIEWS) Stat Exams 04/08/22 23:49 Taken Medication Summary Discontinued Medications Generic Name Dose Route Start Last Admin Trade Name Freq PRN Reason Stop Dose Admin Ketorolac Tromethamine 30 mg 04/08/22 22:35 04/08/22 23:13 Ketorolac Tromethamine 30 Mg/Ml Inj IM 04/08/22 22:36 30 mg STAT ONE Administration Ketorolac Tromethamine Confirm 04/08/22 23:08 Ketorolac Tromethamine 30 Mg/Ml Inj Administered 04/08/22 23:09 Dose 30 mg .ROUTE .STK-MED ONE - Progress Progress: improved Progress Note: Patient reassessed. Pain improved. X-rays negative for fracture dislocations. Patient declined a shoulder sling. Patient was given a wrist cock-up splint for comfort. A prescription of Toradol was provided to patient as well. Patient agrees to follow-up with primary care doctor within 48 hours for evaluation. Portions of this note were created with voice recognition technology. There may be grammatical, spelling, punctuation or sound alike errors 04/09/22 00:13 Counseled pt/family regarding: lab results, diagnosis, need for follow-up, rad results - Departure Departure Disposition: Home Clinical Impression: Wrist contusion, Forearm contusion Condition: Stable Critical Care Time: No Referrals: ASTER MARIA [Primary Care Provider] - Follow up/PCP as directed Additional Instructions: Discharge/Care Plan CALE MADRID was seen on 04/09/22 in the Emergency Room. The patient was counseled regarding Diagnosis,Lab results, Imaging studies, need for follow up and when to return to the Emergency Room. Prescriptions given: Discharge Note I have spoken with the patient and/or caregivers. I have explained the patient's condition, diagnosis and treatment plan based on the information available to me at this time. I have answered the patient's and/or caregiver's questions and addressed any concerns. The patient and/or caregivers have as good understanding of the patient's diagnosis, condition and treatment plan as can be expected at this point. The vital signs have been stable. The patient's condition is stable and appropriate for discharge from the emergency department. The patient will pursue further outpatient evaluation with the primary care phys ician or other designated or consulting physician as outlined in the discharge instructions. The patient and/or caregivers are agreeable to this plan of care and follow-up instructions have been explained in detail. The patient and/or caregivers have received these instruction. The patient/and or caregivers are aware that any significant change in condition or worsening of symptoms should prompt an immediate return to this or the closest emergency department or call 911.
[2022-04-08 22:57] VITALS: O2SAT 98
[2022-04-08] MEDS ORDERED: TORAdol 30 mg Injection ONE (23:08)
[2022-04-08] MEDS: TORAdol 30 mg Injection IM ONE (23:13)
[2022-04-09 00:37] VITALS: BP 118/71; PULSE 76
--- NOTE | 2022-04-09 08:54 | XRAY ---
Indication: Pain following injury. Comparison: None 2 view right forearm obtained. No bony, articular, or soft tissue abnormalities.
--- NOTE | 2022-04-09 08:56 | XRAY ---
Indication: Pain following injury. Comparison: None 3 view right wrist obtained. No bony, articular, or soft tissue abnormalities.
== END 2022-04-09 00:25 | disposition home or self-care (01) ==
LOC: ED 22:17
DX: S60.211A Contusion of right wrist, initial encounter (principal); S50.11XA Contusion of right forearm, initial encounter; W20.8XXA Other cause of strike by thrown, projected or falling object, initial encounter; Y93.H9 Activity, other involving exterior property and land maintenance, building and construction; Y92.007 Garden or yard of unspecified non-institutional (private) residence as the place of occurrence of the external cause; M25.531 Pain in right wrist; Z72.0 Tobacco use
CPT/HCPCS: 73090; 73110; 96372; 99284; J1885; L3908

== ENCOUNTER 2022-05-30 23:08 | Emergency (ER) | payer OTHER ==
--- NOTE | 2022-05-30 23:11 | ERPHSYRPT ---
- History of Present Illness Time Seen by Provider: 05/30/22 23:11 Source: patient Exam Limitations: no limitations Physician History: This is a 41-year-old white male with poor dentition and chronic tooth decay issues. Patient, for the last few days has had worsening pain. His pain is primarily right upper molar region and right sinus pressure and pain. Patient has chronic recurrent issues with dental pain. Patient is allergic to penicillin. Severity: mild (To moderate) ENT Location: dental (Right upper molars) Prearrival Treatment: over the counter meds Associated Symptoms: tooth pain, other (Nasal pressure) Allergies/Adverse Reactions: penicillin G Allergy (Verified 05/30/22 23:18) Hives Home Medications: Omeprazole [Prilosec] 20 mg PO DAILY 07/15/16 [History] Hx Tetanus, Diphtheria Vaccination/Date Given: Yes Hx Influenza Vaccination/Date Given: No Hx Pneumococcal Vaccination/Date Given: No Travel Risk - International Travel Have you traveled outside of the country in past 3 weeks: No - Coronavirus Screening Are you exhibiting any of the following symptoms?: No Close contact with a COVID-19 positive Pt in past 14-21 Days: No - Vaccine Status Have you recieved a Covid-19 vaccination: Yes 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 - Vaccination Dates Date of 2cond Vaccination (if applicable): 2020 - Review of Systems Constitutional: No Symptoms Eyes: No Symptoms Ears, Nose, & Throat: Nose Pain, Other (Right upper molar pain) Respiratory: No Symptoms Cardiac: No Symptoms Abdominal/Gastrointestinal: No Symptoms Genitourinary Symptoms: No Symptoms Musculoskeletal: No Symptoms Skin: No Symptoms Neurological: No Symptoms Psychological: No Symptoms Endocrine: No Symptoms Hematologic/Lymphatic: No Symptoms Immunological/Allergic: No Symptoms All Other Systems: Reviewed and Negative - Past Medical History Pertinent Past Medical History: Yes Neurological History: Seizures ENT History: No Pertinent History Cardiac History: No Pertinent History Respiratory History: Asthma Endocrine Medical History: No Pertinent History Musculoskeletal History: Fractures GI Medical History: GERD History: No Pertinent History Psycho-Social History: Anxiety, Depression Male Reproductive Disorders: No Pertinent History - Past Surgical History Past Surgical History: Yes Neuro Surgical History: No Pertinent History Cardiac: No Pertinent History Respiratory: No Pertinent History Gastrointestinal: No Pertinent History Genitourinary: No Pertinent History Musculoskeletal: Orthopedic Surgery Male Surgical History: No Pertinent History Other Surgical History: rt hand - Social History Smoking Status: Current every day smoker How long have you smoked: off/on Exposure to second hand smoke: Yes Drug Use: none Patient Lives Alone: No - Nursing Vital Signs Nursing Vital Signs: Initial Vital Signs Temperature 98.3 F 05/30/22 23:18 Pulse Rate 80 05/30/22 23:18 Respiratory Rate 18 05/30/22 23:18 Blood Pressure 142/93 05/30/22 23:18 O2 Sat by Pulse Oximetry 98 05/30/22 23:18 Pain Scale Pain Intensity 10 - Physical Exam General Appearance: no apparent distress, alert, anxiety Eye Exam: bilateral eye: normal inspection, PERRL, EOMI Ear Exam: bilateral ear: auricle normal Nasal Exam: normal inspection Throat Exam: dental tenderness (Right upper molars with associated right upper dental gingivitis. 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 as tested, normal mood/affect, nml cerebellar function, nml station & gait, sensation nml Skin Exam: normal color, warm, dry SpO2 Interpretation: normal O2 Delivery: Room Air - Course Nursing assessment & vital signs reviewed: Yes Ordered Tests: Medication Summary Discontinued Medications Generic Name Dose Route Start Last Admin Trade Name Hermes PRN Reason Stop Dose Admin Hydrocodone Bitart/Acetaminophen 1 tab 05/30/22 23:32 05/30/22 23:38 Hydrocodone/Apap 5/325 Mg Tablet PO 05/30/22 23:33 1 tab SENT HOME W/ PATIENT ONE Administration Hydrocodone Bitart/Acetaminophen Confirm 05/30/22 23:37 Hydrocodone/Apap 5/325 Mg Tablet Administered 05/30/22 23:38 Dose 1 tab .ROUTE .STK-MED ONE Hydrocodone Bitart/Acetaminophen 1 tab 05/31/22 00:00 05/31/22 00:03 Hydrocodone/Apap 5/325 Mg Tablet PO 05/31/22 00:01 1 tab STAT ONE Administration Hydrocodone Bitart/Acetaminophen Confirm 05/31/22 00:01 Hydrocodone/Apap 5/325 Mg Tablet Administered 05/31/22 00:02 Dose 1 tab .ROUTE .STK-MED ONE Clindamycin HCl 300 mg 05/30/22 23:31 05/30/22 23:38 Clindamycin Hcl 150 Mg Capsule PO 05/30/22 23:32 300 mg STAT ONE Administration Clindamycin HCl Confirm 05/30/22 23:37 Clindamycin Hcl 150 Mg Capsule Administered 05/30/22 23:38 Dose 300 mg .ROUTE .STK-MED ONE - Progress Progress: improved, pain not gone completely Counseled pt/family regarding: diagnosis, need for follow-up - Departure Departure Disposition: Home Clinical Impression: Chronic enamel dental caries, Chronic dental infection, Gingivitis Condition: Stable Critical Care Time: No Referrals: ASTER MARIA [Primary Care Provider] - Follow up/PCP as directed Instructions: Tooth Decay, Adult, Gingivitis (DC), Dental Pain Additional Instructions: Add ibuprofen and Tylenol for pain control. Take antibiotics as prescribed. Follow-up with your dentist for definitive care. Prescriptions: Clindamycin HCl 150 mg [Cleocin 150 mg Capsule] 2 cap PO QID #56 cap
[2022-05-30] MEDS ORDERED: CLEOCIN 150 MG CAPSULE PO ONE (23:31)
[2022-05-30] MEDS ORDERED: NORCO 5/325 MG PO ONE (23:32)
[2022-05-30] MEDS ORDERED: CLEOCIN 150 MG CAPSULE ONE (23:37)
[2022-05-30] MEDS ORDERED: NORCO 5/325 MG ONE (23:37)
[2022-05-31] MEDS ORDERED: NORCO 5/325 MG PO ONE
[2022-05-31] MEDS ORDERED: NORCO 5/325 MG ONE (00:01)
[2022-05-31 00:31] VITALS: BP 132/86; PULSE 77; O2SAT 96
== END 2022-05-31 00:31 | disposition home or self-care (01) ==
LOC: ED 23:08
DX: K02.9 Dental caries, unspecified (principal); K04.7 Periapical abscess without sinus; K05.10 Chronic gingivitis, plaque induced; Z72.0 Tobacco use
CPT/HCPCS: 99282; A9270-GY

== ENCOUNTER 2023-12-10 18:41 | Emergency (ER) | payer OTHER ==
[2023-12-10 18:45] VITALS: TEMP 98.4
[2023-12-10 18:50] VITALS: O2SAT 96
--- NOTE | 2023-12-10 19:37 | ERPHSYRPT ---
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 chest clear but diminshed in lower lobes, has occ dry cough, moves all ext well, Physician History: 43 years old male history of GERD, COVID-19 virus infection 6 weeks ago. The patient is presenting to the emergency room complaining of coughing spells that he has been having since the diagnosis of his COVID infection 6 weeks ago. Sometimes after the coughing spell he would pass out. Today he was cleaning an oven at work with some chemicals, the order of the chemicals irritated his airways and had a long coughing spell. The patient has been taking a Robitussin DM with little relief. He is denying any fever he has the chills. He gets short of breath with exertion. He is also having bilateral chest pain and congestion. He has been having loose bowel movements lately no nausea or vomiting. He is denying any urinary symptoms. Allergies/Adverse Reactions: penicillin G Allergy (Verified 12/10/23 18:42) Hives Home Medications: Omeprazole [Prilosec] 20 mg PO DAILY 07/15/16 [History] Hx Tetanus, Diphtheria Vaccination/Date Given: Yes Hx Influenza Vaccination/Date Given: No Hx Pneumococcal Vaccination/Date Given: No Immunizations Up to Date: Yes Travel Risk - International Travel Have you traveled outside of the country in past 3 weeks: No - Coronavirus Screening Are you exhibiting any of the following symptoms?: Yes Symptoms: Cough: New Onset, Vomiting/Diarrhea Close contact with a COVID-19 positive Pt in past 14-21 Days: No - Vaccine Status Have you recieved a Covid-19 vaccination: Yes 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 - Vaccination Dates Date of 2cond Vaccination (if applicable): 2020 - Review of Systems Constitutional: Chills, No Fever Eyes: No Symptoms Ears, Nose, & Throat: No Symptoms Respiratory: Cough, Dyspnea on Exertion (CASTELLANOS), No Dyspnea Cardiac: Chest Pain, No Edema, No Syncope Abdominal/Gastrointestinal: Diarrhea, No Abdominal Pain, No Nausea, No Vomiting Genitourinary Symptoms: No Dysuria Musculoskeletal: No Back Pain, No Neck Pain Skin: No Rash Neurological: Dizziness, Other (Syncopal episodes after some coughing spells.), No Focal Weakness, No Sensory Changes Psychological: No Symptoms Endocrine: No Symptoms All Other Systems: Reviewed and Negative - Past Medical History Pertinent Past Medical History: Yes Neurological History: Seizures ENT History: No Pertinent History Cardiac History: No Pertinent History Respiratory History: Asthma Endocrine Medical History: No Pertinent History Musculoskeletal History: Fractures GI Medical History: GERD History: No Pertinent History Psycho-Social History: Anxiety, Depression Male Reproductive Disorders: No Pertinent History - Past Surgical History Past Surgical History: Yes Neuro Surgical History: No Pertinent History Cardiac: No Pertinent History Respiratory: No Pertinent History Gastrointestinal: No Pertinent History Genitourinary: No Pertinent History Musculoskeletal: Orthopedic Surgery Male Surgical History: No Pertinent History Other Surgical History: rt hand - Social History Smoking Status: Former smoker How long have you smoked: off/on Exposure to second hand smoke: Yes Drug Use: none Patient Lives Alone: No - Nursing Vital Signs Nursing Vital Signs: Initial Vital Signs Pulse Rate 91 H 12/10/23 18:42 Respiratory Rate 12 12/10/23 18:42 Blood Pressure 143/90 12/10/23 18:42 O2 Sat by Pulse Oximetry 96 12/10/23 18:42 Pain Scale Pain Intensity 4 - Physical Exam General Appearance: no apparent distress, alert Eye Exam: PERRL/EOMI, eyes nml inspection Ears, Nose, Throat Exam: normal ENT inspection, TMs normal, pharynx normal, moist mucous membranes Neck Exam: normal inspection, non-tender, supple, full range of motion Respiratory Exam: normal breath sounds, lungs clear, No respiratory distress Cardiovascular Exam: regular rate/rhythm, normal heart sounds Gastrointestinal/Abdomen Exam: soft, No tenderness Back Exam: normal inspection, No CVA tenderness, No vertebral tenderness Extremity Exam: normal inspection, normal range of motion Neurologic Exam: alert, oriented x 3, cooperative, normal mood/affect, sensation nml, No motor deficits Skin Exam: normal color, warm, dry, No rash Lymphatic Exam: No adenopathy SpO2: 96 - Course Nursing assessment & vital signs reviewed: Yes Ordered Tests: Active Orders 24 hr Category Date Time Status EKG-ER Only STAT Care 12/10/23 19:32 Active IV Insertion STAT Care 12/10/23 19:32 Active CHEST 1 VIEW (PORTABLE) Stat Exams 12/10/23 19:44 Taken CHEST WITH CONTRAST [CT] Stat Exams 12/10/23 21:03 Taken CBC W DIFF Stat Lab 12/10/23 19:46 Completed CMP Stat Lab 12/10/23 19:46 Completed D-DIMER QUANTITATIVE Stat Lab 12/10/23 19:46 Completed NT PRO BNPII Stat Lab 12/10/23 19:46 Completed PROTIME WITH INR Stat Lab 12/10/23 19:46 Completed PTT Stat Lab 12/10/23 19:46 Completed TROPONIN Q4H Lab 12/10/23 19:46 Completed TROPONIN Q4H Lab 12/10/23 23:45 Ordered TROPONIN Q4H Lab 12/11/23 03:45 Ordered Lab/Rad Data: Laboratory Result Diagrams 12/10/23 19:46 12/10/23 19:46 Laboratory Results 12/10/23 12/10/23 12/10/23 Range/Units 19:46 19:46 19:46 WBC (4.0-10.5) x10^3/uL RBC (4.1-5.6) x10^6/uL Hgb (12.5-18.0) g/dL Hct (42-50) % MCV (78-100) fL MCH (26-32) pg MCHC (32-36) g/dL RDW (11.5-14.0) % Plt Count (150-450) x10^3/uL MPV (7.5-11.0) fL Gran % (36.0-66.0) % Immature Gran % (Auto) (0.00-0.4) % Nucleat RBC Rel Count (0.00-0.1) % Eos # (Auto) (0-0.5) x10^3/uL Immature Gran # (Auto) (0.00-0.03) x10^3u/L Absolute Lymphs (auto) (1.0-4.6) x10^3/uL Absolute Monos (auto) (0.0-1.3) x10^3/uL Absolute Nucleated RBC (0.00-0.01) x10^3u/L Lymphocytes % (24.0-44.0) % Monocytes % (0.0-12.0) % Eosinophils % (0.00-5.0) % Basophils % (0.0-0.4) % Absolute Granulocytes (1.4-6.9) x10^3/uL Basophils # (0-0.4) x10^3/uL PT 11.3 (9.4-12.5) SECONDS INR 1.04 (0.8-3.0) APTT 29.3 (25.1-36.5) SECONDS D-Dimer 2.01 H* (0.0-0.50) mg/L Sodium (137-145) mmol/L Potassium (3.5-5.1) mmol/L Chloride (98-107) mmol/L Carbon Dioxide (22-30) mmol/L Anion Gap (5-15) MEQ/L BUN (9-20) mg/dL Creatinine (0.66-1.25) mg/dL Estimated GFR ML/MIN Glucose (74-106) mg/dL Calcium (8.4-10.2) mg/dL Total Bilirubin (0.2-1.3) mg/dL AST (17-59) U/L ALT (0-50) U/L Alkaline Phosphatase (38-126) U/L Troponin I < 0.012 (0.000-0.034) ng/mL NT-Pro-B Natriuret Pep 325 (<300) pg/mL Serum Total Protein (6.3-8.2) g/dL Albumin (3.5-5.0) g/dL 12/10/23 12/10/23 Range/Units 19:46 19:46 WBC 7.6 (4.0-10.5) x10^3/uL RBC 4.44 (4.1-5.6) x10^6/uL Hgb 13.8 (12.5-18.0) g/dL Hct 41.4 L (42-50) % MCV 93.2 (78-100) fL MCH 31.1 (26-32) pg MCHC 33.3 (32-36) g/dL RDW 12.9 (11.5-14.0) % Plt Count 260 (150-450) x10^3/uL MPV 9.8 (7.5-11.0) fL Gran % 58.9 (36.0-66.0) % Immature Gran % (Auto) 0.3 (0.00-0.4) % Nucleat RBC Rel Count 0.0 (0.00-0.1) % Eos # (Auto) 0.08 (0-0.5) x10^3/uL Immature Gran # (Auto) 0.02 (0.00-0.03) x10^3u/L Absolute Lymphs (auto) 2.10 (1.0-4.6) x10^3/uL Absolute Monos (auto) 0.89 (0.0-1.3) x10^3/uL Absolute Nucleated RBC 0.00 (0.00-0.01) x10^3u/L Lymphocytes % 27.6 (24.0-44.0) % Monocytes % 11.7 (0.0-12.0) % Eosinophils % 1.1 (0.00-5.0) % Basophils % 0.4 (0.0-0.4) % Absolute Granulocytes 4.48 (1.4-6.9) x10^3/uL Basophils # 0.03 (0-0.4) x10^3/uL PT (9.4-12.5) SECONDS INR (0.8-3.0) APTT (25.1-36.5) SECONDS D-Dimer (0.0-0.50) mg/L Sodium 135 L (137-145) mmol/L Potassium 3.8 (3.5-5.1) mmol/L Chloride 102 (98-107) mmol/L Carbon Dioxide 22 (22-30) mmol/L Anion Gap 14.2 (5-15) MEQ/L BUN 11 (9-20) mg/dL Creatinine 0.86 (0.66-1.25) mg/dL Estimated GFR 109.5 ML/MIN Glucose 142 H (74-106) mg/dL Calcium 9.1 (8.4-10.2) mg/dL Total Bilirubin 0.90 (0.2-1.3) mg/dL AST 35 (17-59) U/L ALT 25 (0-50) U/L Alkaline Phosphatase 74 (38-126) U/L Troponin I (0.000-0.034) ng/mL NT-Pro-B Natriuret Pep (<300) pg/mL Serum Total Protein 7.0 (6.3-8.2) g/dL Albumin 3.9 (3.5-5.0) g/dL - Progress Progress: unchanged Air Movement: good Progress Note: 12/10/23 19:39 43 years old Patient with past medical history of GERD, COVID-19 infection that was diagnosed 6 weeks ago. The patient presented emergency room complaining of dry cough since his COVID infection diagnosis. Sometimes he gets coughing spells followed by syncopal episodes. 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 He is also complaining of bilateral chest congestion and pain he has no history of coronary artery disease no history of asthma. Has been taking [id number] cough medications with some relief. Emergency room course and medical decision making Check an EKG, portable chest x-ray, CBC, BMP, D-dimer and troponin. The patient's EKG demonstrated sinus rhythm at rate of 86 bpm. 12/10/23 20:29 The patient lab results are reviewed. His lactic acid is elevated at 2.06 will order CTA chest rule out PE. 12/10/23 22:11 The patient CTA read by the radiologist as negative for PE or any other acute findings. The patient is reassured about the above results. He will be discharged home. He wants to be off work for for at least 2 days, he can return on 12/13/23. He is told to rest, increase his fluid intake, he still can take his cough medication Robitussin DM 4 times a day as needed. Follow-up with his family physician in 2 to 3 days. Follow-up as needed for any worsening symptoms with Blood Culture(s) Obtained: No Antibiotics given: No - Departure Departure Disposition: Home Clinical Impression: Cough present for greater than 3 weeks, Syncope due to autonomic failure Condition: Stable Critical Care Time: No Referrals: ASTER MARIA [Primary Care Provider] - Follow up/PCP as directed Additional Instructions: The patient will be discharged home. Rest, increase fluid intake, avoid irritants that can trigger the cough. 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 Robitussin DM syrup 4 times a day as needed. Follow-up with family physician 2 to 3 days. Off work for 2 days, return on December 13, 2023. Follow-up as needed for any worsening symptoms. Prescriptions: Benzonatate 200 mg PO QID 10 Days #30 cap
[2023-12-10 19:48] LABS: Absolute Neutrophil Ct (ANC) 4.48 x10^3/uL (1.4-6.9); BASOPHIL % 0.4 % (0.0-0.4); Basophil (Absolute #) 0.03 x10^3/uL (0-0.4); Eosinophil % 1.1 % (0.00-5.0); Eosinophil (Absolute #) 0.08 x10^3/uL (0-0.5); Hematocrit 41.4 % (42-50); Hemoglobin 13.8 g/dL (12.5-18.0); IMMATURE GRAN # 0.02 x10^3u/L (0.00-0.03); IMMATURE GRAN % 0.3 % (0.00-0.4); Lymphocytes % 27.6 % (24.0-44.0); Mean Cell Volume 93.2 fL (78-100); Mean Corpuscular Hemoglobin 31.1 pg (26-32); Mean Corpuscular Hgb Concent. 33.3 g/dL (32-36); Mean Platelet Volume 9.8 fL (7.5-11.0); Monocyte (Absolute #) 0.89 x10^3/uL (0.0-1.3); Monocytes % 11.7 % (0.0-12.0); Neutrophil % 58.9 % (36.0-66.0); Platelet Count 260 x10^3/uL (150-450); Red Blood Count 4.44 x10^6/uL (4.1-5.6); Red Cell Distribution Width 12.9 % (11.5-14.0); White Blood Count 7.6 x10^3/uL (4.0-10.5)
[2023-12-10 19:55] LABS: ALBUMIN 3.9 g/dL (3.5-5.0); ANION GAP 14.2 MEQ/L (5-15); BILIRUBIN,TOTAL 0.9 mg/dL (0.2-1.3); Calcium 9.1 mg/dL (8.4-10.2); Creatinine 1 0.86 mg/dL (0.66-1.25); EST GLOMERULAR FILTRATION RATE 109.5 ML/MIN; Potassium 3.8 mmol/L (3.5-5.1)
[2023-12-10 19:58] LABS: INR 1.04 (0.8-3.0); PROTIME 11.3 SECONDS (9.4-12.5); PTT 29.3 SECONDS (25.1-36.5)
[2023-12-10 20:21] LABS: D-DIMER QUANTITATIVE 2.01 mg/L (0.0-0.50)
--- NOTE | 2023-12-11 08:48 | XRAY ---
Indication: Cough. Covid 19. History pulmonary embolus. Multiple contiguous axial images obtained through the chest using 80 cc Isovue 370 contrast and PE protocol. Comparison: April 17, 2021 Good opacification of the pulmonary arteries to include the lobar and segmental branches. No pulmonary embolus. Heart not enlarged. Aorta is normal in course and caliber. Again chunky right hilar calcified nodes. No pathologic mediastinal/hilar lymphadenopathy. Lungs again demonstrates small right lower lobe calcified granuloma. No new pulmonary mass/nodule, infiltrate, effusion, or pneumothorax. Bony thorax intact. Limited upper abdomen again demonstrates fatty liver. Impression: 1. Continued negative pulmonary embolus. No new/acute cardiopulmonary abnormalities. 2. Again chronic findings including fatty liver and old granulomatous disease.
--- NOTE | 2023-12-11 08:50 | XRAY ---
Indication: Cough. Positive Covid 19. Comparison: July 15, 2016 Portable chest again demonstrates normal heart and lungs with incidental right hilar calcified nodes. Bony thorax intact. No new/acute findings.
[2023-12-14 07:58] VITALS: BP 111/71; PULSE 82; RESP 24
== END 2023-12-10 22:32 ==
LOC: ED 18:41
DX: R05.3 Chronic cough (principal); R55 Syncope and collapse; R06.02 Shortness of breath; R07.9 Chest pain, unspecified; Z86.16 Personal history of COVID-19
CPT/HCPCS: 36000; 36415; 71045; 71260; 80053; 83880; 84484; 85025; 85379; 85610; 85730; 93005; 99284

== ENCOUNTER 2024-09-02 14:55 | Emergency (ER) | payer OTHER ==
--- NOTE | 2024-09-02 15:26 | ERPHSYRPT ---
- History of Present Illness Time Seen by Provider: 09/02/24 15:26 Source: patient Exam Limitations: no limitations Physician History: This is a right-handed obese white male patient of Dr. Emanuel who presents with a nail in his left hand. 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 Patient has full sensation and tendon function. The tip of the nail went through the palmar aspect and is exposed. Patient tetanus status is not up-to-date. Patient has a history of asthma, gastroesophageal reflux disease, and anxiety. Occurred: just prior to arrival Method of Injury: other (nail gun accident) Quality: throbbing Severity of Pain-Max: moderate Severity of Pain-Current: moderate Extremities Pain Location: hand: left (Palmar aspect between digits 1 and 2) Modifying Factors: Improves With: movement Associated Symptoms: none Allergies/Adverse Reactions: penicillin G Allergy (Verified 09/02/24 15:28) Hives Home Medications: Omeprazole [Prilosec] 20 mg PO DAILY 07/15/16 [History] Buspirone HCl 5 mg [Buspar 5 mg] 1 ea DAILY 09/02/24 [History] Paroxetine HCl 20 mg [Paxil 20 MG] 20 mg PO DAILY 09/02/24 [History] Hx Tetanus, Diphtheria Vaccination/Date Given: Yes Hx Influenza Vaccination/Date Given: No Hx Pneumococcal Vaccination/Date Given: No Travel Risk - International Travel Have you traveled outside of the country in past 3 weeks: No - Emerging Infectious Disease Are you exhibiting symptoms associated with any current EIDs: No - Review of Systems Constitutional: No Symptoms Eyes: No Symptoms Ears, Nose, & Throat: No Symptoms Respiratory: No Symptoms Cardiac: No Symptoms Abdominal/Gastrointestinal: No Symptoms Genitourinary Symptoms: No Symptoms Musculoskeletal: Injury (Left hand) 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 (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 dorsal aspect tip exiting through thenar eminence left hand) Psychological: No Symptoms Endocrine: No Symptoms Hematologic/Lymphatic: No Symptoms Immunological/Allergic: No Symptoms All Other Systems: Reviewed and Negative - Past Medical History Pertinent Past Medical History: Yes Neurological History: Seizures ENT History: No Pertinent History Cardiac History: No Pertinent History Respiratory History: Asthma Endocrine Medical History: No Pertinent History Musculoskeletal History: Fractures GI Medical History: GERD History: No Pertinent History Psycho-Social History: Anxiety, Depression Male Reproductive Disorders: No Pertinent History - Past Surgical History Past Surgical History: Yes Neuro Surgical History: No Pertinent History Cardiac: No Pertinent History Respiratory: No Pertinent History Gastrointestinal: No Pertinent History Genitourinary: No Pertinent History Musculoskeletal: Orthopedic Surgery Male Surgical History: No Pertinent History Other Surgical History: rt hand - Social History Smoking Status: Former smoker How long have you smoked: off/on Exposure to second hand smoke: Yes Drug Use: none Patient Lives Alone: No - Nursing Vital Signs Nursing Vital Signs: Initial Vital Signs Temperature 98 F 09/02/24 15:34 Pulse Rate 70 09/02/24 15:34 Respiratory Rate 18 09/02/24 15:34 Blood Pressure 142/90 09/02/24 15:34 O2 Sat by Pulse Oximetry 96 09/02/24 15:34 Pain Scale Pain Intensity 9 - Physical Exam General Appearance: no apparent distress, alert, anxiety Eyes, Ears, Nose, Throat Exam: normal ENT inspection, moist mucous membranes Neck Exam: normal inspection, non-tender, supple, full range of motion Cardiovascular/Respiratory Exam: chest non-tender, no respiratory distress Abdominal Exam: non-tender Back Exam: normal inspection Shoulder Exam: normal inspection Elbow/Forearm Exam: normal inspection Wrist Exam: normal inspection Hand Exam: soft tissue tenderness (Trivedi nail retained in the tissue. Entrance site dorsal aspect in the soft tissue between first and second digits of the left hand. The tip of the nail pierces through the left hand thenar em inence. No active bleeding. Full range of motion. Sensation intact.) Neuro/Tendon Exam: normal sensation, normal motor functions, normal tendon functions, responds to pain, no evidence tendon injury Mental Status Exam: alert, oriented x 3 Skin Exam: other (See above extremity/hand section) SpO2 Interpretation: normal O2 Delivery: Room Air - Course Nursing assessment & vital signs reviewed: Yes Ordered Tests: Active Orders 24 hr Category Date Time Status HAND (MINIMUM 3 VIEWS) Stat Exams 09/02/24 15:31 Completed HAND (MINIMUM 3 VIEWS) Stat Exams 09/02/24 16:05 Ordered Medication Summary Discontinued Medications Generic Name Dose Route Start Last Admin Trade Name Freq PRN Reason Stop Dose Admin Ceftriaxone Sodium 1,000 mg 09/02/24 16:04 Ceftriaxone Sodium 1000 Mg Inj Vial IM 09/02/24 16:05 STAT ONE Lidocaine HCl Confirm 09/02/24 15:51 Lidocaine Hcl 1% 20 Ml Mdv 20 Ml Ml Administered 09/02/24 15:52 Dose 5 ml .ROUTE .STK-MED ONE Oxycodone/Acetaminophen 1 tab 09/02/24 16:04 Oxycodone Hcl/Apap 5 Mg/325 Mg Tablet PO 09/02/24 16:05 STAT STA - Progress Progress: improved, pain not gone completely, re-examined Progress Note: 09/02/24 16:14 My medical decision making of the assignment of low to moderate complexity is based on review of the patient's past medical history, review the patient's medication list, reviewed patient drug allergy list, history present illness and physical findings on examination. The workup in this patient includes x-ray of the left hand preforeign body removal followed by removal of the foreign body then a post foreign body removal x-ray of the left hand. Patient and his spouse said that he has taken Keflex in the past without any adverse effects. The preliminary report of the x-ray of the left hand was interpreted by me. There is definitely a nail foreign body present with the majority in the subcutaneous space between digits 1 and 2 of the left hand. No evidence of any acute fracture or dislocation of bones. The final report of the x-ray of the left hand was interpreted by the radiologist and I reviewed the impression. The impression was same as my impression. The preliminary report of the post foreign body removal x-ray was interpreted by me. There continues to be no evidence of any acute fracture or dislocation of bones. The foreign body (nail) was removed intact. 09/02/24 16:19 Counseled pt/family regarding: diagnosis, need for follow-up, rad results Medical Desision Making - Independent Historian Additional History obtained from: Spouse - Diagnostic Testing Diagnostic test were ordered, analyzed, and reviewed by me: Yes Radiological Interpretation: Interpreted by me, Reviewed by me, Teleradiologist Report - Risk of complications The pt has a mod risk of morbidity or mortality based on: Need for prescription drug management - Departure Departure Disposition: Home Clinical Impression: Foreign body of left hand Condition: Stable Critical Care Time: No Referrals: ASTER EMANUEL [Primary Care Provider] - Follow up/PCP as directed Additional Instructions: Keep the entrance and exit sites of the wound of the left hand clean twice daily with soap and water. Do not cover with any antibiotic ointments lotions or creams. May cover with a bandage but remove this bandage at least twice a day for cleaning. Take your antibiotics and pain medication as prescribed. May add ibuprofen 600 mg orally with food 3 times a day for the next 5 days. If there are any questions or concerns return to the emergency department for wound check. Prescriptions: Oxycodone HCl/Acetaminophen [Percocet 5-325 mg Tablet] 1 each PO Q8H PRN PRN #6 tablet MDD 3 PRN Reason: Moderate To Severe Pain Cephalexin Mh 500 mg [Keflex 500 mg] 500 mg PO TID #15 cap
[2024-09-02 15:35] VITALS: RESP 18; TEMP 98
[2024-09-02] MEDS ORDERED: XYLOCAINE 1% HCL 20 ML MDV ONE (15:51)
--- NOTE | 2024-09-02 15:55 | XRAY ---
Indication: Nail in hand. Comparison: None 3 view left hand demonstrates nail tip in soft tissues between 1st and 2nd metacarpals. No other bony, articular, or soft tissue abnormalities.
[2024-09-02] MEDS ORDERED: PERCOCET TABLET 5/325MG ONE (16:11)
[2024-09-02] MEDS ORDERED: Adacel Vial IM ONE (16:12)
[2024-09-02] MEDS ORDERED: Rocephin 1000 MG INJ ONE (16:12)
[2024-09-02] MEDS: Rocephin 1000 MG INJ IM ONE (16:14)
[2024-09-02] MEDS: Adacel Vial IM ONE (16:15)
[2024-09-02] MEDS: PERCOCET TABLET 5/325MG PO STA (16:16)
[2024-09-02 16:32] VITALS: BP 128/76; PULSE 76; O2SAT 97
--- NOTE | 2024-09-02 22:21 | XRAY ---
Indication: Foreign body removal. Comparison: Taken earlier in the day 3 view left hand demonstrates complete removal previous nail. No other bony, articular, or soft tissue abnormalities.
== END 2024-09-02 16:32 | disposition home or self-care (01) ==
LOC: ED 14:55
DX: S61.442A Puncture wound with foreign body of left hand, initial encounter (principal); W29.4XXA Contact with nail gun, initial encounter; Z79.891 Long term (current) use of opiate analgesic; Z79.899 Other long term (current) drug therapy; Z23 Encounter for immunization
CPT/HCPCS: 73130; 90471; 90715; 96372; 99283; J0696; A9270-GY